=== PATIENT | male | born 1975 ===

== ENCOUNTER 2023-03-20 12:09 | Emergency (ER) | payer OTHER, BC, SELFPAY ==
[2023-03-20] VITALS (11 sets, daily range): BP systolic 134–163; BP diastolic 80–125; PULSE 69–83; RESP 18; TEMP 37.1; O2SAT 95–97
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
[2023-03-20] MEDS: Acetaminophen 325 MG TAB 650 MG PO (12:36)
[2023-03-20] MEDS: Lidocaine 5% Patch 1 PATCH TP (12:36)
[2023-03-20] MEDS: Cyclobenzaprine 10 MG TAB PO (12:36)
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
[2023-03-20] MEDS: Ondansetron O.D.T. 4 MG TABEF SL (12:52)
== END 2023-03-20 14:05 | disposition home or self-care (01) ==
PROVIDERS: Emergency Provider Emergency Medicine
DX: M54.2 Cervicalgia (principal); R42 Dizziness and giddiness; R41.0 Disorientation, unspecified; M25.519 Pain in unspecified shoulder; V48.5XXA Car driver injured in noncollision transport accident in traffic accident, initial encounter
CPT/HCPCS: 99284; 70450; 72125; 99283

== ENCOUNTER 2023-03-25 12:22 | Emergency (ER) | payer OTHER, SELFPAY ==
[2023-03-25 12:29] VITALS: BP 143/112; PULSE 100; RESP 20; TEMP 36.9; O2SAT 97
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
[2023-03-25 14:48] VITALS: BP 129/99; PULSE 86; RESP 14; O2SAT 100
[2023-03-25] MEDS: Acetaminophen 500 MG TAB 1000 MG PO (15:00)
[2023-03-25] MEDS: Lidocaine 5% Patch 1 PATCH TP (15:01)
== END 2023-03-25 15:34 | disposition home or self-care (01) ==
PROVIDERS: Emergency Provider Student in an Organized Health Care Education/Training Program; PCP Family Medicine
DX: M54.6 Pain in thoracic spine; R03.0 Elevated blood-pressure reading, without diagnosis of hypertension; V48.5XXA Car driver injured in noncollision transport accident in traffic accident, initial encounter
CPT/HCPCS: 99284; 72128